=== PATIENT | male | born 1995 | race Caucasian/White ===

== ENCOUNTER 2017-04-28 05:17 | Emergency (ER) | payer BC ==
--- NOTE | 2017-04-28 05:25 | EDPHY ---
H & P HPI/ROS: HPI CHIEF COMPLAINT: Nail through 3rd finger digit. HISTORY OF PRESENT ILLNESS: This patient 21-year-old male, who presents emergency room with a nail through his right hand 3rd digit palmar aspect mid finger. States he was picking up a piece of wood that he found on the ground did not realize that had a piece and now sticking out of this now went through his finger. Presents emergency room with a piece of wood and nail stuck to his finger. Tetanus shot is up-to-date. Past Medical History: No significant medical history Past Surgical History: No significant surgical history Social History: Denies daily use of drugs alcohol tobacco products. Family History: Noncontributory ROS REVIEW OF SYSTEMS: A comprehensive 10 point review of systems is otherwise negative aside from elements mentioned in the history of present illness. Exam Constitutional appears well nontoxic triage nursing summary reviewed, vital signs reviewed, awake/alert. Eyes normal conjunctivae and sclera, EOMI, PERRLA. HENT normal inspection, atraumatic, moist mucus membranes, no epistaxis, neck supple/ no meningismus, no raccoon eyes. Respiratory clear to auscultation bilaterally, normal breath sounds, no respiratory distress, no wheezing. Cardiovascular rate normal, regular rhythm, no murmur, no edema, distal pulses normal. Gastrointestinal soft, non-tender, no rebound, no guarding, normal bowel sounds, no distension, no pulsatile mass. Genitourinary no CVA tenderness. Musculoskeletal no midline vertebral tenderness, full range of motion, no calf swelling, no tenderness of extremities, no meningismus, good pulses, neurovascularly intact. Skin right hand: Palmar aspect, 3rd digit, mid digit, there is a short now through it the finger tissue, attached to a piece of wood, pink, warm, & dry, no rash, skin atraumatic. Neurologic awake, alert and oriented x 3, AAOx3, moves all 4 extremities equally, motor intact, sensory intact, CN II-XII intact, normal cerebellar, normal vision, normal speech. Psychiatric normal mood/affect. Heme/Lymph/Immune no lymphadenopathy. Differential Diagnosis: Puncture wound to the 3rd right digit. Medical Decision Making: Plan for this patient his tetanus shot is up-to-date. He will need numbing medication around the nail sites holding the would to his hand. Will then attempt to remove the nail that went through his finger with the what attach. Once the nail and what is removed. Patient will need copious cleaning of his wound. I will start him on Keflex prophylactically. And will see if we need to suture anything closed if there is a bigger wound on the other side. Re-evaluation: 0531: Was able to remove the piece of wood that had a nail in it that was impaled on the right hand 3rd digit palmar side. He had good anesthesia with 1 % lidocaine with epinephrine applied around the puncture site. He tolerated the removal of the nail very well. We are now irrigating cleaning on his wound. 0532: Post now and would removal. Neurovascular intact full range of motion of the finger. Palmar side there is a laceration present 3 cm that will need repair. No evidence of arterial injury. No tendon injury. I did recommend patient gets an x-ray of his finger to make shows no foreign body or bony involvement. However he has declined x-ray. 0539AM: Patient's wound was copiously irrigated and cleaned. No foreign bodies visualized. No arterial injury. No tendon injury. 3 cm laceration repaired by myself under sterile conditions. Patient understands to watch for signs of infection. Placed in a dressing and finger splint. Laceration Repair Procedure: Verbal Consent was obtained, Under sterile conditions, The patient had lidocaine with epinephrine used approximately 5ccs to local anesthetize the Right hand 3rd digit 3cm Laceration. The wound was copiously irrigated with sterile fluid, the wound was explored for foreign bodies there were none visualized, the wound was explored with a sterile glove to the base. There are no deep structures involved, including no arterial injury. THREE interrupted 6.O Prolene Sutures were placed in this patient's laceration. He had good close approximation of the wound edges. He Tolerated this well. Source: Patient - Medical/Surgical History Hx Asthma: No Hx Chronic Respiratory Disease: No Hx Diabetes: No Hx Cardiac Disease: No Hx Renal Disease: No Hx Cirrhosis: No Hx Alcoholism: No Hx HIV/AIDS: No Hx Splenectomy or Spleen Trauma: No - Social History Smoking Status: Never smoked Constitutional: Initial Vital Signs Temperature (C) 36.9 C 04/28/17 05:26 Heart Rate 94 04/28/17 05:26 Respiratory Rate 18 04/28/17 05:26 Blood Pressure 130/97 H 04/28/17 05:26 O2 Sat (%) 97 07/09/17 05:26 O2 Delivery Mode Room Air Allergies/Adverse Reactions: No Known Allergies Allergy (Unverified 07/31/15 22:53) Home Medications: Medication Instructions Recorded Cephalexin [Keflex] 500 mg PO Q6H #28 cap 04/28/17 Departure - Departure Disposition: Home, Routine, Self-Care Clinical Impression: Laceration, Puncture wound Condition: Good Instructions: Care For Your Stitches (ED), Laceration (ED), Puncture Wound (ED) Additional Instructions: 1.Keep your wound clean, dry, protected. 2. Watch for signs for infection this includes redness, swelling, pus. 3. Your sutures need to be removed in 12 days. Referrals: NONE *PRIMARY CARE P,. [Primary Care Provider] - As per Instructions Prescriptions: Cephalexin [Keflex] 500 mg PO Q6H #28 cap
[2017-04-28 05:28] VITALS: BP 130/97; PULSE 94; RESP 18; TEMP 98.4; O2SAT 97
[2017-04-28] MEDS ORDERED: CEPHALEXIN 500MG PREPACK#4 BTL TAKEHOME ONE (05:30)
[2017-04-28] MEDS ORDERED: CEPHALEXIN 500 MG CAP PO ONE (05:30)
== END 2017-04-28 05:50 | disposition home or self-care (01) ==
PROC: 0HQFXZZ Repair Right Hand Skin, External Approach (ICD-10-PCS; principal; 2017-04-28)
DX: S61.232A Puncture wound without foreign body of right middle finger without damage to nail, initial encounter (principal); W45.8XXA Other foreign body or object entering through skin, initial encounter